=== PATIENT | female | born 1955 | race Caucasian/White ===

== ENCOUNTER → 2021-03-31 | Outpatient (CLI) | payer OTHER | LOC: M WHC 13:45 | PROVIDERS: ATTEND Internal Medicine | DX: Z12.31 Encounter for screening mammogram for malignant neoplasm of breast (principal); Z78.0 Asymptomatic menopausal state ==

== ENCOUNTER → 2021-09-17 | Outpatient (CLI) | payer OTHER ==
[~2021-09-17] MED LIST: D200CAP2 PO; MULT1TAB16 PO; VALS1TAB67 PO; [UNRECOGNIZED DRUG - OTHER] PO
== END ==
LOC: M LABSMTC 09:50
PROVIDERS: ATTEND Anesthesiology
DX: Z01.818 Encounter for other preprocedural examination (principal); Z11.52 Encounter for screening for COVID-19

== ENCOUNTER 2021-09-20 11:01 | Day surgery (SDC) | payer OTHER ==
[~2021-09-20] VITALS: Ht 157.5 cm; Wt 62.6 kg
[~2021-09-20 11:01] MED LIST changes: -D200CAP2 PO; -MULT1TAB16 PO; +NS 1,000 ML IV ONE; -[UNRECOGNIZED DRUG - OTHER] PO
[2021-09-20] MEDS ORDERED: D200CAP2 PO (12:27)
[2021-09-20] MEDS ORDERED: propofoL 500 MG/50 ML VIAL As Ordered ONE (12:28)
[2021-09-20] MEDS ORDERED: MULT1TAB16 PO (12:30)
[2021-09-20] MEDS ORDERED: [UNRECOGNIZED DRUG - OTHER] PO (12:30)
[2021-09-20] MEDS ORDERED: LIDOCAINE 2% 100MG/5ML SDV (FOR ANES.) As Ordered ONE (12:38)
[2021-09-20 14:30] VITALS: BP 170/88
== END 2021-09-20 14:36 | disposition home or self-care (01) ==
LOC: M OPP 11:01
PROVIDERS: ATTEND Internal Medicine Gastroenterology
DX: Z12.11 Encounter for screening for malignant neoplasm of colon (principal); Z80.0 Family history of malignant neoplasm of digestive organs; K64.1 Second degree hemorrhoids; K57.30 Diverticulosis of large intestine without perforation or abscess without bleeding; I10 Essential (primary) hypertension; Z79.899 Other long term (current) drug therapy

== ENCOUNTER → 2022-04-26 | Outpatient (CLI) | payer OTHER ==
[~2022-04-26] MED LIST changes: +D200CAP2 PO; +MULT1TAB16 PO; -NS 1,000 ML IV ONE; +[UNRECOGNIZED DRUG - OTHER] PO
== END ==
LOC: M WHC 11:40
PROVIDERS: ATTEND Internal Medicine
DX: Z12.31 Encounter for screening mammogram for malignant neoplasm of breast (principal)

== ENCOUNTER → 2023-05-10 | Outpatient (CLI) | payer OTHER | LOC: M WHC 08:08 | PROVIDERS: ATTEND Internal Medicine | DX: Z12.31 Encounter for screening mammogram for malignant neoplasm of breast (principal) ==

== ENCOUNTER → 2024-06-09 | Outpatient (CLI) | payer BC, MEDICARE, OTHER, SELFPAY | LOC: M WHC 08:56 | PROVIDERS: ATTEND Internal Medicine | DX: Z12.31 Encounter for screening mammogram for malignant neoplasm of breast (principal) ==

== ENCOUNTER → 2024-08-05 | Outpatient (REF) | payer BC | LOC: M SFHCDERM 12:50 | PROVIDERS: ATTEND Physician Assistant | DX: B00.9 Herpesviral infection, unspecified (principal) ==